=== PATIENT | female | born 1960 | race Caucasian/White ===

== ENCOUNTER → 2017-05-24 | Emergency (ER) | payer OTHER ==
[~2017-05-24] VITALS: Ht 160 cm; Wt 74.8 kg
[~2017-05-24] MED LIST: COZAAR100 MG; DICY20TA; OMEPRAZOLE40 MG PO; PANADOL EXTRA500 MG; ULTRACET PO; ZANTAC150 MG PO; ZANTAC300 MG
== END | disposition home or self-care (01) ==
LOC: ER 05:05
DX: K29.70 Gastritis, unspecified, without bleeding (principal); R10.11 Right upper quadrant pain

== ENCOUNTER → 2017-07-03 | Emergency (ER) | payer OTHER ==
[~2017-07-03] VITALS: Ht 160 cm; Wt 72.6 kg
== END | disposition home or self-care (01) ==
LOC: ER 18:40
DX: R10.31 Right lower quadrant pain (principal); K59.09 Other constipation

== ENCOUNTER 2019-04-22 09:22 | Emergency (ER) | payer OTHER ==
[~2019-04-22] VITALS: Ht 160 cm; Wt 72.1 kg
[2019-04-22] MEDS ORDERED: BACTRIM DS TAB1 EACH PO (15:27)
[2019-04-22] MEDS ORDERED: DICLOFENAC SODI75 MG PO (15:27)
== END 2019-04-22 15:57 | disposition home or self-care (01) ==
LOC: ER 09:22
DX: M54.2 Cervicalgia (principal); M54.5 Low back pain; N39.0 Urinary tract infection, site not specified

== ENCOUNTER 2019-04-24 14:12 | Emergency (ER) | payer OTHER ==
[~2019-04-24] VITALS: Ht 160 cm; Wt 72.1 kg
[~2019-04-24 14:12] MED LIST changes: +BACTRIM DS TAB1 EACH PO; +DICLOFENAC SODI75 MG PO
== END 2019-04-24 16:42 | disposition home or self-care (01) ==
LOC: ER 14:12
DX: M79.18 Myalgia, other site (principal)

== ENCOUNTER 2019-09-13 12:40 | Emergency (ER) | payer OTHER ==
[~2019-09-13] VITALS: Ht 160 cm; Wt 71.7 kg
[2019-09-13] MEDS ORDERED: COZAAR50 MG (12:59)
[2019-09-13] MEDS ORDERED: DOLOGEN CAPLET1 EACH PO (15:20)
== END 2019-09-13 15:52 | disposition home or self-care (01) ==
LOC: ER 12:40
DX: M54.89 Other dorsalgia (principal); R51 Headache; R53.1 Weakness; Z03.818 Encounter for observation for suspected exposure to other biological agents ruled out

== ENCOUNTER 2020-05-27 06:13 | Emergency (ER) | payer OTHER ==
[~2020-05-27] VITALS: Ht 160 cm; Wt 75.3 kg
[~2020-05-27 06:13] MED LIST changes: +COZAAR50 MG; +DOLOGEN CAPLET1 EACH PO
== END 2020-05-27 10:40 | disposition home or self-care (01) ==
LOC: ER 06:13
DX: R06.02 Shortness of breath (principal); Z20.822 Contact with and (suspected) exposure to COVID-19

== ENCOUNTER → 2022-04-24 | Emergency (ER) | payer OTHER ==
[~2022-04-24] VITALS: Ht 160 cm; Wt 78.0 kg
[~2022-04-24] MED LIST changes: +LEVO-T25 MCG PO; +ONDANSETRON ODT4 MG PO; +PANTOPRAZOLE SO40 MG PO; +PEPCID40 MG PO; +PROTONIX40 MG PO
== END | disposition home or self-care (01) ==
LOC: ER 17:08
DX: R10.13 Epigastric pain (principal)

== ENCOUNTER 2022-10-31 23:58 | Emergency (ER) | payer OTHER ==
[~2022-10-31] VITALS: Ht 160 cm; Wt 78.5 kg
[2022-11-01] MEDS ORDERED: LOSARTAN POTASS25 MG PO (00:29)
[2022-11-01] MEDS ORDERED: COZAAR50 MG PO (00:31)
== END 2022-11-01 03:59 | disposition left against medical advice (07) ==
LOC: ER 23:58
DX: Z53.21 Procedure and treatment not carried out due to patient leaving prior to being seen by health care provider (principal)